=== PATIENT | female | born 1960 | race Caucasian/White ===

== ENCOUNTER 2017-03-16 22:10 | Emergency (ER) | payer OTHER ==
[2017-03-16 22:23] VITALS: BP 134/84; PULSE 95; RESP 20; TEMP 98.2; O2SAT 97
[2017-03-16] MEDS: AMOXICILLIN 125/5 ML BOTTLE PO ONE ×2 (23:22)
[2017-03-16] MEDS ORDERED: AUGMENTIN(FRIDGE) 400 MG/5 ML PO ONE (23:24)
[2017-03-16] MEDS ORDERED: AUGMENTIN(FRIDGE) 400 MG/5 ML ONE (23:29)
== END 2017-03-16 23:43 | disposition home or self-care (01) | DRG 605 ==
LOC: ED 22:10
DX: S61.452A Open bite of left hand, initial encounter (principal); L53.9 Erythematous condition, unspecified; W55.01XA Bitten by cat, initial encounter
CPT/HCPCS: 99282; A9270-GY